=== PATIENT | male | born 1960 | race Hispanic/Latino ===

== ENCOUNTER 2019-03-02 21:19 | Emergency (ER) | payer OTHER ==
[~2019-03-02] VITALS: Ht 175.3 cm; Wt 91.6 kg
--- OUTSIDE RECORDS SUMMARY | 2019-03-02 21:21 | XMS REPORT ---
[email or web address] Address Unknown Phone Unavailable Care Team Providers Care Cargoman Name Role Phone SEBASTIAN BOOKER Unavailable Unavailable Problems This patient has no known problems. Allergies, Adverse Reactions, Alerts This patient has no known allergies or adverse reactions. Medications This patient has no known medications. Results Test Description Test Time Test Comments Text Results Atomic Results Result Comments FOOT LEFT COMPLETE 2019-03-02 13:54:00 [place] [address] Patient Name: PERCY CARLOS MR #: [id number] : 1960 Age/Sex: 58/M Req #: [id number] Adm Physician: Ordered by: JHONY BAPTISTE, SEBASTIAN Burgess MD Report #: [id number] Location: [facility] Room/Bed: Procedure: [id number] DX/FOOT LEFT COMPLETE Exam Date: 03/02/19 Exam Time: 1255 REPORT STATUS: Signed LEFT FOOT - 4 Images HISTORY: Pain COMPARISON: None available. FINDINGS: Bones: No acute displaced fracture. No aggressive osseous lesion. 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 A nonaggressive 1.3 x 0.5 cm sclerotic density within the fourth proximal phalanx, compatible with a bone island. Joints: Osseous alignment is within normal limits and the joint spaces are well-maintained. Soft tissues: Diffuse moderate soft tissue swelling. IMPRESSION: Nonspecific soft tissue swelling. Signed by: Dr. Audrey Shanks D.O., M.M.M. on 03/02/2019 1:59 PM Dictated By: AUDREY SHANKS DO [id number] Transcribed By: MERARY on 03/02/19 2482 COPY TO: SEBASTIAN BOOKER
== END 2019-03-02 21:39 | disposition home or self-care (01) ==
LOC: ER 21:19
DX: M79.672 Pain in left foot (principal); S93.622A Sprain of tarsometatarsal ligament of left foot, initial encounter; I10 Essential (primary) hypertension; X50.1XXA Overexertion from prolonged static or awkward postures, initial encounter; Y92.531 Health care provider office as the place of occurrence of the external cause
CPT/HCPCS: 99282

== ENCOUNTER → 2019-03-02 | Outpatient (CLI) | payer OTHER ==
--- NOTE | 2019-03-02 14:02 | Diagnostic Imaging Report ---
LEFT FOOT - 4 Images HISTORY: Pain COMPARISON: None available. FINDINGS: Bones: No acute displaced fracture. No aggressive osseous lesion. 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 A nonaggressive 1.3 x 0.5 cm sclerotic density within the fourth proximal phalanx, compatible with a bone island. Joints: Osseous alignment is within normal limits and the joint spaces are well-maintained. Soft tissues: Diffuse moderate soft tissue swelling. IMPRESSION: Nonspecific soft tissue swelling. Signed by: Dr. Woodrow Shanks D.O., M.M.M. on 03/02/2019 1:59 PM
== END ==
LOC: RAD 12:34
PROVIDERS: ATTEND Family Medicine
DX: M79.672 Pain in left foot (principal)

== ENCOUNTER → 2019-10-11 | Outpatient (CLI) | payer OTHER | LOC: RAD 13:14 | PROVIDERS: ATTEND Family Medicine | DX: I82.491 Acute embolism and thrombosis of other specified deep vein of right lower extremity (principal) | CPT/HCPCS: 93971 ==